=== PATIENT | male | born 1945 | race Caucasian/White ===

== ENCOUNTER → 2016-09-24 | Outpatient (CLI) | payer OTHER ==
[~2016-09-24] MED LIST: AMOX875T PO; IBUP-103 PO
[2016-09-24 11:00] LABS: BASO % 0.7 %; BASO ABS # 0.04 K/uL (0-0.2); COMPLETE YES; EOS % 3.5 %; HEMATOCRIT 43.8 % (42-52); IG% 0.2 %; LYMPH % 36.4 %; LYMPH ABS # 2.21 K/uL (1.2-3.4); MEAN CELL VOLUME 90.3 fL (80-100); MEAN CORPUSCULAR HEMOGLOBIN 31.1 pg (25-34); MEAN CORPUSCULAR HGB CONC 34.5 g/dl (32-36); MEAN PLATELET VOLUME 11.1 fL (7.4-10.4); MONO % 7.1 %; NEUT % 52.1 %; PLATELET COUNT 176 K/uL (130-400); RED BLOOD COUNT 4.85 M/uL (4.7-6.1); WHITE BLOOD COUNT 6.07 K/uL (4.8-10.8)
[2016-09-24 11:21] LABS: ALT/SGPT 29 U/L (12-78); BLOOD UREA NITROGEN 23 mg/dl (7-18); BUN/CREATININE RATIO 21.1 (10-20); C-REACTIVE PROTEIN < 0.29 mg/dl (0-0.29); CALCIUM 8.6 mg/dl (8.5-10.1); CARBON DIOXIDE 32 mmol/L (21-32); CHLORIDE 106 mmol/L (98-107); CHOLESTEROL 154 mg/dl (0-200); GLUCOSE 93 mg/dl (70-99); POTASSIUM 4.1 mmol/L (3.5-5.1); SODIUM 143 mmol/L (136-145); TRIGLYCERIDES 92 mg/dl (0-150); VERY LOW DENSITY LIPOPROT CALC 18 mg/dl
[2016-09-24 11:25] LABS: ALB/GLOB RATIO 1.3 (0.9-2); ALKALINE PHOSPHATASE 54 U/L (45-117); AST/SGOT 22 U/L (15-37); HDL CHOLESTEROL 52 mg/dl; LDL CHOLESTEROL CALCULATED 84 mg/dl; RHEUMATOID FACTOR < 10.0 U/mL (0-15)
== END | disposition home or self-care (01) ==
LOC: C.LABBC 07:45
PROVIDERS: ATTEND Internal Medicine
DX: Z13.220 Encounter for screening for lipoid disorders (principal); M25.50 Pain in unspecified joint

== ENCOUNTER → 2016-10-14 | Day surgery (SDC) | payer OTHER ==
[2016-10-13 10:02] VITALS: BMI 25.0
--- NOTE | 2016-10-13 21:15 | HISTORY & PHYSICAL EXAMINATION ---
DATE OF ADMISSION: 10/14/2016 DIAGNOSIS: Sebaceous cyst, left cheek. 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 PAST MEDICAL HISTORY: MEDICAL PROBLEMS: Positive for arthritis. PREVIOUS SURGERIES: Knee surgery, cataract surgery, and basal cell carcinoma. MEDICATIONS: Augmentin. ALLERGIES: None known. FAMILY HISTORY: Negative. SOCIAL HISTORY: Negative. REVIEW OF SYSTEMS: Otherwise negative. PHYSICAL EXAMINATION: GENERAL: Elderly male in no acute distress. VITAL SIGNS: 5 feet 7, 160 pounds. HEAD: Normocephalic except for a 1.5 cm sebaceous cyst of the left cheek. EYES: Normal. EARS: Tympanic membranes intact. NOSE: Nasal passage is patent. THROAT: Oropharynx normal. There is a palpable cyst of the left cheek which does not appear to extend into the buccal mucosa. NECK: Supple. HEART: RRR. LUNGS: Clear. ABDOMEN: Soft. GENITOURINARY: Deferred. EXTREMITIES: Full range of motion. IMPRESSION: Epidermal inclusion cyst of the left cheek. PLAN: For excision.
[~2016-10-14] VITALS: Ht 170.2 cm; Wt 72.7 kg
[~2016-10-14] MED LIST changes: +ATROPINE SULFATE 0.1 MG/ML 5ML SYR IV PRN; +BACITRACIN OINT 15 GM TUBE ONE; +EpHEDrine SULFATE INJ 50 MG/ML AMP IV PRN; +FENTANYL CITRATE INJ 50 MCG/1 ML 2 ML VIAL IV PRN; +FENTANYL CITRATE INJ 50 MCG/1 ML 2 ML VIAL ONE; -IBUP-103 PO; +LACTATED RINGER'S 1000ML 1,000 ML IV SCH; +LIDOCAINE 2%/EPINEPHRINE 1:100,000 1.8 ML CARTRIDGE ONE; +LIDOCAINE HCL 2% 2 ML VIAL (20MG/ML) ONE; +LIDOCAINE/EPINEPHRINE 2% 1:200,000 20 ML SDV INJ ONE; +MIDAZOLAM HCL 1 MG/ML 2ML VIAL ONE; +PROPOFOL IV EMULSION 10 MG/ML 20 ML VIAL IV ONE
--- NOTE | 2016-10-14 07:04 | History & Physical Bridge Note ---
H&P Re-Evaluation Bridge Note: I have examined the patient, reviewed the History & Physical and in the interval since the performance of the History & Physical I have noted the following changes of clinical significance: No changes noted
[2016-10-14 07:26] VITALS: BP 146/84; PULSE 74; TEMP 36.9; O2SAT 99; Ht 170.2 cm; Wt 72.7 kg
[2016-10-14 10:03] VITALS: BP 124/70; PULSE 67; TEMP 36.5; O2SAT 100
--- NOTE | 2016-10-14 10:09 | Discharge Instructions-SurgCtr ---
Discharge Instructions Date of Service Oct 14, 2016. Visit Reason for Visit: Left Face Sebaceous Cyst Discharge Discharge Diagnosis / Problem: same Discharge Goals Goal(s): Therapeutic intervention Activity Recommendations Activity Limitations: resume your previous activity Anesthesia . Post Anesthesia Instructions: If you have had General Anesthesia or IV Sedation: * Do not drive today. * Resume driving when surgeon permits. * Do not make important decisions or sign legal documents today. * Call surgeon for: 1. Temperature elevations greater than 101 degrees F. 2. Uncontrollable pain. 3. Excessive bleeding. 4. Persistent nausea and vomiting. 5. Medication intolerance (nausea, vomiting or rash). * For nausea and vomiting use only clear liquids such as: tea, soda, bouillon until nausea subsides, then gradually increase diet as tolerated. * If you have any concerns or questions, call your surgeon's office. If physician is unavailable and it is an emergency, call 911 or go to the nearest emergency room. . Instructions / Follow-Up Instructions / Follow-Up ACTIVITY: Most patients are able to return to a full-time work schedule in 1 week; however this may vary according to your job. It may take longer to return to heavy physical or other demanding work, or shorter if you are feeling well. DIET: Drink and eat foods that can be swallowed easily, e.g. juice, soup, gelatin, applesauce, scrambled eggs or mashed potatoes. You may be able to return to your usual diet in a couple of days. INCISION CARE: You may shower 24 hours after surgery After you are done showering, just pat your incision dry. If it is draining clear fluid, you can cover it with a dry dressing (such as gauze). Do NOT scrub with soap or washcloth for the first 10 days. Apply bacitracin ointment. Mild swelling at the incision site will go away in 4-6 weeks. The pink line will slowly fade to white during the next 6-12 months. Use a sunscreen (SPF#30 or higher) or wear a scarf for protection if in the sun for the first 6 months to a year as the sun can darken your scar. You may begin to use a hypoallergenic moisturizing cream (no vitamin E, Mederma , or other scar creams) along the incision after 2 weeks. COMMON PROBLEMS: Numbness of the skin under the chin or above the incision is normal and should go away in a few weeks. Your incision may feel itchy while it heals. Avoid rubbing or scratching if possible. CALL YOUR DOCTOR IF: For any non-urgent questions, call Dr. Rosenberg office [phone] or the nursing unit where you were a patient. Call Dr. Mtz [phone] or go to the Emergency Room if you have fever ( temperature greater than 100.5), chills, lightheadedness, shortness of breath, difficulty breathing, nausea, vomiting, numbness or tingling in your fingers, hands, or mouth, muscle spasms, or if you notice signs of wound infection ( redness, tenderness, or drainage from the incision). Please also call or go to the Emergency Room if you have any other urgent concerns. FOLLOW UP VISIT: Follow-up visit with Dr. Mtz. in 10 days for suture removal Please call to schedule if not already scheduled. Diet Recommendations Home Diet: no limitations Procedures Procedures Performed: Left Face Sebaceous Cyst Excision Pending Studies Studies pending at discharge: no Medical Emergencies . Who to Call and When: Medical Emergencies: If at any time you feel your situation is an emergency, please call [phone] immediately. . Non-Emergent Contact Non-Emergency issues call your: Primary Care Provider . . "Provider Documentation" section prepared by Chantel Mtz. [place] Drug Monitoring Program Search Results: no issues identified
--- NOTE | 2016-10-14 10:32 | Anesthesiology Progress Note ---
Anesthesia Post Op Note Date & Time Oct 14, 2016 at 10:31 Vital Signs Pain Intensity: 0 Vital Signs Past 12 Hours Date Time Temp Pulse Resp B/P Pulse Ox O2 Delivery O2 Flow Rate FiO2 10/14/16 10:03 36.5 67 16 124/70 100 Room Air 10/14/16 07:26 36.9 74 18 146/84 99 Room Air Notes Mental Status: alert / awake / arousable, participated in evaluation Pt Amnestic to Procedure: Yes Nausea / Vomiting: adequately controlled Pain: adequately controlled Airway Patency, RR, SpO2: stable & adequate BP & HR: stable & adequate Hydration State: stable & adequate Anesthetic Complications: no major complications apparent
[2016-10-14 10:33] VITALS: BP 133/74; PULSE 55; TEMP 36.4; O2SAT 100
--- NOTE | 2016-10-14 10:44 | OPERATIVE REPORT ---
DATE OF OPERATION: 10/14/2016 PREOPERATIVE DIAGNOSIS: Sebaceous cyst, left face. POSTOPERATIVE DIAGNOSIS: Same. PROCEDURE: Excision of sebaceous cyst. SURGEON: Chantel Mtz MD ANESTHESIA: Local with sedation. COMPLICATIONS: None. BLOOD LOSS: 5 mL. HISTORY OF PRESENT ILLNESS: A 70-year-old with acutely enlarging sebaceous cyst left face that failed treatment with cephalexin, referred by Dr. Ochoa for excision. DESCRIPTION OF PROCEDURE: The patient was brought to the operating room and placed in supine position, sedated, prepped with ChloraPrep and draped in usual sterile manner. The local anesthesia was obtained by injection of 2% Xylocaine 1:100,000 strength epinephrine. An elliptical incision was made around the cyst excising the cyst from superiorly to inferiorly following the skin creases. The incision was carried down to the subcutaneous and fascial layer; however, the cyst was ruptured slightly at the inferior border. The cultures were taken. Sebaceous material was suctioned clean. Then the entire cyst was excised along with a small amount of subcutaneous fat, taking care to control bleeders with a bipolar cautery and checking for the marginal mandibular nerve function during the whole excision. The incision was closed with interrupted 3-0 chromic suture subcutaneously and interrupted 5-0 nylon sutures on the skin. The facial nerve function was noted to be intact at the end of the procedure. The patient tolerated the procedure well and was taken to recovery area in satisfactory condition. I attest to the content of the Intraoperative Record and any orders documented therein. Any exceptio ns are noted below.
[2016-10-14 11:03] VITALS: BP 134/90; PULSE 50; TEMP 36.4; O2SAT 100
== END | disposition home or self-care (01) ==
LOC: C.ACU 07:11
PROVIDERS: ATTEND Otolaryngology
DX: L72.3 Sebaceous cyst (principal); E11.9 Type 2 diabetes mellitus without complications; M19.90 Unspecified osteoarthritis, unspecified site

== ENCOUNTER → 2017-05-22 | Outpatient (CLI) | payer OTHER | END | disposition home or self-care (01) | LOC: C.LABBC 10:34 | PROVIDERS: ATTEND Internal Medicine | DX: N40.1 Benign prostatic hyperplasia with lower urinary tract symptoms (principal); N13.9 Obstructive and reflux uropathy, unspecified; R97.20 Elevated prostate specific antigen [PSA] ==

== ENCOUNTER → 2017-09-16 | Outpatient (CLI) | payer OTHER ==
[2017-09-16 11:07] LABS: HEMATOCRIT 43.2 % (42-52); HEMOGLOBIN 14.7 g/dL (14.0-18.0); MEAN CELL VOLUME 91.9 fL (80-100); MEAN CORPUSCULAR HEMOGLOBIN 31.3 pg (25-34); MEAN PLATELET VOLUME 11.4 fL (7.4-10.4); PLATELET COUNT 182 K/uL (130-400); RED CELL DISTRIBUTION WIDTH CV 13.4 % (11.5-14.5); RED CELL DISTRIBUTION WIDTH SD 45.1 fL (36.4-46.3); WHITE BLOOD COUNT 6.15 K/uL (4.8-10.8)
[2017-09-16 11:24] LABS: BLOOD UREA NITROGEN 20 mg/dl (7-18); CALCIUM 8.7 mg/dl (8.5-10.1); CARBON DIOXIDE 29 mmol/L (21-32); CREATININE 1.04 mg/dl (0.60-1.40); GLUCOSE 88 mg/dl (70-99); SODIUM 139 mmol/L (136-145)
[2017-09-16 11:28] LABS: CHOLESTEROL 149 mg/dl (0-200); LDL CHOLESTEROL CALCULATED 80 mg/dl
== END | disposition home or self-care (01) ==
LOC: C.LAB1850 07:54
PROVIDERS: ATTEND Internal Medicine
DX: M25.50 Pain in unspecified joint (principal); Z13.220 Encounter for screening for lipoid disorders; Z11.59 Encounter for screening for other viral diseases